=== PATIENT | female | born 1985 | race Hispanic/Latino ===

== ENCOUNTER 2021-06-06 16:10 | Emergency (ER) | payer MEDICAID ==
[2021-06-06] MEDS ORDERED: HYDROcodone/ACETAMINOPHEN 5-325 MG TAB PO ONE (18:35)
[2021-06-06] MEDS ORDERED: NEOMY 3.5 MG/BACIT 400 UNITS/POLY B 5000 UNITS/GM OINT PACKET TP ONE (18:35)
[2021-06-06] MEDS ORDERED: TETANUS,DIPH,PERTUSS(ACELL) VACCINE 0.5 ML SYRINGE IM ONE (18:35)
--- NOTE | 2021-06-06 18:40 | Emergency Department Report ---
ED Animal Bite HPI - General Chief Complaint: Animal Bite Stated Complaint: BIT BY A DOG Time Seen by Provider: 06/06/21 18:34 Source: patient Mode of arrival: Wheelchair Limitations: No Limitations - History of Present Illness Initial Comments: Patient is a 36-year-old female presents emergency room complaints of a dog bite to the right foot that occurred just prior to arrival. Patient states that it hurts her pitbull. She states he was fighting with another dog and that she was trying to pick it up and the pitbull bit her. She states that the dog has been vaccinated in the past for rabies but she believes it is not up-to-date. She states that she has associated pain and some discomfort with walking. She states initially there was bleeding but is since improved. she denies any numbness or weakness. She is unsure of her last tetanus immunization. No past medical history. No allergies to medications. - Related Data Previous Rx's Medication Instructions Recorded Last Taken Type Amoxicillin/Potassium Clav 1 each PO BID 10 Days #20 tablet 06/06/21 Unknown Rx [Augmentin 875-125 Tablet] Mupirocin [Bactroban 2% OINT] 1 applic TP TID #1 tube 06/06/21 Unknown Rx Naproxen 375 mg PO BID PRN #14 tablet. 06/06/21 Unknown Rx Allergies Allergy/AdvReac Type Severity Reaction Status Date / Time No Known Allergies Allergy Unverified 06/06/21 16:15 ED Review of Systems ROS: Stated complaint: BIT BY A DOG Other details as noted in HPI Comment: All other systems reviewed and negative ED Past Medical Hx - Past Medical History Previous Medical History?: No - Surgical History Past Surgical History?: Yes Hx Cholecystectomy: Yes - Social History Smoking Status: Current Every Day Smoker Substance Use Type: None - Medications Home Medications: Home Medications Medication Instructions Recorded Confirmed Last Taken Type Amoxicillin/Potassium Clav 1 each PO BID 10 Days #20 tablet 06/06/21 Unknown Rx [Augmentin 875-125 Tablet] Mupirocin [Bactroban 2% OINT] 1 applic TP TID #1 tube 06/06/21 Unknown Rx Naproxen 375 mg PO BID PRN #14 tablet. 06/06/21 Unknown Rx ED Physical Exam - General Limitations: No Limitations General appearance: alert, in no apparent distress - Head Head exam: Present: atraumatic, normocephalic - Eye Eye exam: Present: normal appearance - ENT ENT exam: Present: mucous membranes moist - Respiratory Respiratory exam: Absent: respiratory distress, accessory muscle use - Extremities Exam Extremities exam: Present: other (1 cm laceration present to the right 4th toe, no foreign body, no muscle/tendon involvement, FROM of the RLE, neurovascularly intact, no active bleeding) - Neurological Exam Neurological exam: Present: alert, oriented X3 - Psychiatric Psychiatric exam: Present: normal affect, normal mood - Skin Skin exam: Present: warm, dry ED Course Vital Signs 06/06/21 06/06/21 16:19 20:17 Temperature 98.6 F 98.1 F Pulse Rate 107 H 90 Respiratory 20 18 Rate Blood Pressure 130/78 Blood Pressure 124/80 [Right] O2 Sat by Pulse 96 98 Oximetry - Reevaluation(s) Reevaluation #1: 06/06/21 21:47 Ordering Physician: DEEDEE BROWN Date of Service: 06/06/21 Procedure(s): XR foot 3+V RT Accession Number(s): [id number] cc: DEEDEE BROWN Fluoro Time In Minutes: RIGHT FOOT 3 VIEW(S) INDICATION / CLINICAL INFORMATION: dog bite right foot at the toes. COMPARISON: None available. FINDINGS: BONES / JOINT(S): No acute fracture or subluxation. No significant arthritis. SOFT TISSUES: No soft tissue gas or radiopaque foreign body. ADDITIONAL FINDINGS: None. Signer Name: Kenny Kwok MD Signed: 06/06/2021 7:53 PM Workstation Name: [id number] Transcribed By: DT Dictated By: Vimal Kwok MD Electronically Authenticated By: Vimal Kwok MD Signed Date/Time: 06/06/211952 DD/ 51 TD/TT: - Consultations Consultation #1: Patient is a 36-year-old female presents emergency room complaints of a dog bite to the right foot that occurred just prior to arrival. Patient states that it hurts her pitbull. She states he was fighting with another dog and that she was trying to pick it up and the pitbull bit her. She states that the dog has been vaccinated in the past for rabies but she believes it is not up-to-date. She states that she has associated pain and some discomfort with walking. She states initially there was bleeding but is since improved. she denies any numbness or weakness. She is unsure of her last tetanus immunization. No past medical history. No allergies to medications. Initial vitals with tachycardia which improved upon repeat. On exam:1 cm laceration present to the right 4th t oe, no foreign body, no muscle/tendon involvement, FROM of the RLE, neurovascularly intact, no active bleeding. XR right foot: BONES / JOINT(S): No acute fracture or subluxation. No significant arthritis. SOFT TISSUES: No soft tissue gas or radiopaque foreign body. ADDITIONAL FINDINGS: None. Wound care performed by nurse. Patient given Tdap immunization. Given that this is patient's home dog, she states that the dog is an inside dog, she states the dog was not showing any rabid signs or symptoms, advised patient to be sure to quarantine the dog at home and watch for 10 days, patient is agreeable with plan and will forego rabies immunization at this time. Patient given prescription for medications. Advised patient Please take medication as prescribed. Please keep area clean, dry, covered. Wash with antibacterial soap and water twice a day and pat dry. No hot tub, no pool, no soaking in water. Showering is fine. Follow-up with your primary care doctor for reexamination. Return to emergency room for any new or worsening symptoms. Critical care attestation.: If time is entered above; I have spent that time in minutes in the direct care of this critically ill patient, excluding procedure time. ED Disposition Clinical Impression: Dog bite Qualifiers: Encounter type: initial encounter Qualified Code(s): W54.0XXA - Bitten by dog, initial encounter Disposition: DC-01 TO HOME OR SELFCARE Is pt being admited?: No Does the pt Need Aspirin: No Condition: Stable Instructions: Animal Bite, Adult, [id number], Laceration Care, Adult Additional Instructions: Please take medication as prescribed. Please keep area clean, dry, covered. Wash with antibacterial soap and water twice a day and pat dry. No hot tub, no pool, no soaking in water. Showering is fine. Follow-up with your primary care doctor for reexamination. Return to emergency room for any new or worsening symptoms. Prescriptions: Amoxicillin/Potassium Clav [Augmentin 520-125 Tablet] 1 each PO BID 10 Days #20 tablet Mupirocin [Bactroban 2% OINT] 1 applic TP TID #1 tube Naproxen 375 mg PO BID PRN #14 tablet.dr MAO Reason: pain Referrals: HARSHA CARLSON MD [Primary Care Provider] - 2-3 Days Time of Disposition: 19:58 Print Language: YAKUT
--- NOTE | 2021-06-06 19:57 | XRay Report ---
RIGHT FOOT 3 VIEW(S) INDICATION / CLINICAL INFORMATION: dog bite right foot at the toes. COMPARISON: None available. FINDINGS: BONES / JOINT(S): No acute fracture or subluxation. No significant arthritis. SOFT TISSUES: No soft tissue gas or radiopaque foreign body. ADDITIONAL FINDINGS: None. Signer Name: Kenny Kwok MD Signed: 06/06/2021 7:53 PM Workstation Name: [id number]
[2021-06-06 20:18] VITALS: BP 124/80
== END 2021-06-06 20:18 | disposition home or self-care (01) ==
LOC: ED 16:10
DX: S91.351A Open bite, right foot, initial encounter (principal); Z98.890 Other specified postprocedural states; F17.200 Nicotine dependence, unspecified, uncomplicated; W54.0XXA Bitten by dog, initial encounter; Y93.89 Activity, other specified; Y92.89 Other specified places as the place of occurrence of the external cause; Y99.8 Other external cause status
CPT/HCPCS: 73630; 90471; 90715; 99284; A6250